=== PATIENT | male | born 1995 | race African-American/Black ===

== ENCOUNTER 2017-06-20 22:55 | Emergency (ER) | payer MEDICAID ==
[~2017-06-20] VITALS: Ht 177.8 cm; Wt 108.9 kg
[2017-06-20 23:00] VITALS: BP_SYST 142
[2017-06-20] MEDS ORDERED: KETOROLAC TROMETHAMINE 60 MG/2 ML VIAL IM ONE (23:00)
== END 2017-06-21 01:35 | disposition home or self-care (01) ==
LOC: SED 22:55
DX: S50.02XA Contusion of left elbow, initial encounter (principal); S40.012A Contusion of left shoulder, initial encounter; W01.0XXA Fall on same level from slipping, tripping and stumbling without subsequent striking against object, initial encounter; Y93.89 Activity, other specified; Y92.89 Other specified places as the place of occurrence of the external cause; Y99.8 Other external cause status
CPT/HCPCS: 29105; 73030; 73080; 73110; 96374; 99284; J1885